=== PATIENT | female | born 1985 | race Caucasian/White ===

== ENCOUNTER 2023-03-29 08:07 | Emergency (ER) | payer SELFPAY ==
[2023-03-29 08:10] VITALS: BP 175/121; PULSE 95; RESP 16; TEMP 36.4; O2SAT 100
--- NOTE | 2023-03-29 08:49 | ED.DENTAL ---
HPI - Dental/Oral General Chief complaint: Dental/Oral Stated complaint: tooth abscess Time Seen by Provider: 03/29/23 08:43 History of Present Illness HPI Narrative: 37-year-old female presented to the emergency department for evaluation of worsening dental pain. Patient states the dental pain has been worsening over the last few days. Patient has been taking ibuprofen for pain control. Patient states she is also attempting to get follow-up with a dentist. Patient describes the pain and the left upper posterior teeth. Patient denies any difficulty breathing or swallowing. Patient feels that she does have some left facial swelling but no visible swelling. Related Data Allergies Allergy/AdvReac Type Severity Reaction Status Date / Time No Known Allergies Allergy Unverified 08/17/18 12:02 Review of Systems Review of Systems: All systems reviewed & are unremarkable except as noted in HPI and below Exam Narrative: APPEARANCE: Well appearing, no pain, no distress, well-nourished. HEAD: normocephalic, atraumatic. Tenderness to posterior left upper teeth, no abscess amenable to drainage EYES: PERRLA/EOMI, conjunctivae clear. NOSE: Normal no drainage EARS:TMS clear with good light reflex. THROAT: Pharynx clear, no exudate. NECK: Supple. No adenopathy, no masses. RESPIRATORY: Airway patent, respirations nonlabored. Clear to auscultation bilaterally, no rales, rhonchi, wheezing. CARDIOVASCULAR: Regular rate and rhythm without murmurs rubs or gallops. ABDOMINAL: Soft, nontender, nondistended, normal bowel sounds MUSCULOSKELETAL: Moves all extremities. Strength/ROM intact, No edema, No calf tenderness. NEURO: Alert. Cranial nerves II through XII intact. Grossly intact SKIN: Warm, dry. Normal Color Course Course Emergency Course: 37-year-old female present to the ED for evaluation of worsening left-sided facial pain secondary to dental infection. Patient was started on antibiotics in the emergency department. Patient was discharged home with antibiotics and patient was courage have close follow-up with her dentist. All questions concerns were addressed patient was comfortable with plan for discharge and close follow Vital Signs Vital signs: Vital Signs Temperature 97.5 F L 03/29/23 08:10 Pulse Rate 95 03/29/23 08:10 Respiratory Rate 16 03/29/23 08:10 Blood Pressure 175/121 H 03/29/23 08:10 Pulse Oximetry 100 03/29/23 08:10 Oxygen Delivery Room Air 03/29/23 08:10 Temperature 98.9 F 03/29/23 08:57 Pulse Rate 84 03/29/23 09:04 Respiratory Rate 16 03/29/23 09:04 Blood Pressure 188/86 H 03/29/23 09:04 Pulse Oximetry 98 03/29/23 09:04 Oxygen Delivery Room Air 03/29/23 08:57 Discharge Plan Discharge Clinical Impression: Toothache, Dental caries Patient Disposition: Home, Self-Care Condition: Stable Instructions: Antibiotic Form, Dental Abscess (ED), Toothache (ED) Additional Instructions: Antibiotic as directed until completed. Have close follow-up with your dentist. Tylenol and ibuprofen for pain control. Replace the Tylenol with norco as needed for additional pain control. If you have any worsening symptoms or if you have any questions or concerns then please call or return to the emergency department. Prescriptions: New amoxicillin-pot clavulanate 875-125 mg tablet 1 tablet PO Q12H 7 Days Qty: 14 0RF hydrocodone-acetaminophen 5-325 mg tablet 1 tablet PO Q12H PRN (Reason: pain) Qty: 10 0RF Follow-up/Referrals: UNKNOWN,DOCTOR [Primary Care Provider] -
[2023-03-29 08:57] VITALS: BP 202/90; PULSE 87; RESP 15; TEMP 37.2; O2SAT 100
[2023-03-29] MEDS: AMOXICILLIN/CLAVULANATE K 875-125 MG TAB 1 TABLET PO (08:57)
[2023-03-29 09:04] VITALS: BP 188/86; PULSE 84; RESP 16; O2SAT 98
== END 2023-03-29 09:04 | disposition home or self-care (01) ==
LOC: ANHED 08:58
PROVIDERS: Emergency Provider Emergency Medicine
DX: K02.9 Dental caries, unspecified (principal)
CPT/HCPCS: 99283; A9270